=== PATIENT | male | born 1950 ===

== ENCOUNTER 2024-11-16 09:17 | Inpatient (IN) | payer MEDICARE, MEDICAID, SELFPAY ==
[2024-11-02 08:13] VITALS: BMI 33.0
[2024-11-16] VITALS (10 sets, daily range): BP systolic 109–134; BP diastolic 50–103; PULSE 73–98; RESP 13–24; TEMP 35.8–36.8; O2SAT 91–100; BMI 34.8; BMI 36.0
--- NOTE | 2024-11-16 | DI.RAD.S_ITS ---
PROCEDURE: XR ANKLE LT MIN 3V INDICATIONS: ORIF LEFT ANKLE TECHNIQUE: 13 intraoperative fluoroscopic views of the ankle were acquired. COMPARISON: None. FINDINGS: Intraoperative fluoroscopic images shows surgical hardware placed in distal tibial shaft, and in midfoot and hindfoot. IMPRESSION: Fluoro guidance was provided intraoperatively for ORIF of left ankle performed by ordering physician. Dictated by: Delfino Stiles M.D. on 11/16/2024 at 16:57 Approved by: Delfino Stiles M.D. on 11/16/2024 at 16:59
--- NOTE | 2024-11-16 10:16 | SUR.PREOP ---
Called KINDRA Burris at [facility] to review home medications.
[2024-11-16] MEDS: LACTATED RINGERS 1,000 ML 42 ML IV (10:33)
[2024-11-16] MEDS: ACETAMINOPHEN 325 MG TABLET 975 MG PO (10:42)
--- NOTE | 2024-11-16 10:48 | SUR.PREOP ---
1025 Spoke with Johana, financial sales assistant at [facility], to verify last anticoagulant dose. Per Johana, patient took his anticoagulant on 11/[address] Branham and Nithya Colunga, SEARCH MARKETING ANALYST notified.
--- NOTE | 2024-11-16 12:01 | PM.PREOP ---
Pre-operative Note Interval Note History & Physical reviewed/Exam performed by Physician: Yes Changes to H&P: No
[2024-11-16] MEDS: CEFAZOLIN 2 GM/100 ML PREMIX 100 ML IV ×2 (12:28→20:56)
--- NOTE | 2024-11-16 13:03 | SUR.OPER ---
Supine on padded OR bed, head on pillow, arms secured on padded arm boards at <90 degrees abduction, safety belt at waist, tape over blanket over lower right nonoperative leg, right leg bumped, right hip with bump, prepped into field.
[2024-11-16] MEDS: BUPIVACAINE 0.25% W/ EPI 30 ML VIAL 60 ML INJ (13:11)
--- NOTE | 2024-11-16 16:19 | P.OP_ITS ---
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 Partial Talectomy CPT code 10173 left 3. Achilles tenotomy CPT code 83635 left, separate site modifier 59 4. Fibula osteotomy CPT code 89652 5. Peroneal tendon release CPT code 76109 left This procedure was performed with a modifier 22 for a extremely difficult rigid pes planovalgus deformity requiring extensive dissection mobilization and translation exposure and time greater than twice the standard ankle fusion. The patient's calcaneus was locked superior and parallel to the talus laterally requiring extensive dissection and exposure for deformity correction. Same procedure as scheduled: Yes Indications: Patient was a 73-year-old male with a extremely severe left foot and ankle deformity with severe equinus pes planovalgus deformity that is rigid and neuropathic arthropathy his calcaneus is parallel and superior to his talus and he has been weight-bearing on his talar head. He was not able to walk due to his deformity and desires correction. The risks and benefits of the procedure have been discussed with the patient and given the opportunity to ask questions. The risks of surgery include but are not limited to infection, over correction or under correction of deformity, malunion, nonunion, persistence of pain, damage to nerves and blood vessels, posttraumatic arthritis, DVT, PE, cardiopulmonary complications, need for amputation and . The patient e xpressed a thorough understanding of the risks and benefits of surgery and has elected to proceed. Consent was signed. During the operation, the services of a physician surgical services asst were medic ally indicated and necessary to provide the exposure of the operative site for the surgical procedure and to maintain the limb in a proper position to carry out the operation safely and efficiently. Without a qualified medical record assistant being present this would extended the operative procedure and made the procedure technically more difficult to perform. Surgeon: Geovanna Branham Astronomy Professor: Jose Christine Anesthesia Type: General and Local Operative Notes Findings: Severe pes planovalgus deformity with the foot parallel and superior, lateral to the ankle. Calcaneus is locked on the distal fibula non correctable deformity. Callus of the talar head but no open wounds. Closure Type: primary Specimen(s): none sent Prosthetic devices, grafts, tissues, transplants, or devices: Arthrex dual compression hindfoot nail 10.5 x 210 mm with interlocking calcaneal talar and tibial screws Separate 2 x 7.0 headless cannulated screws for talonavicular fixation, 80 mm Estimated Blood Loss (mL): 200 Blood products transfused: none Tourniquet time (min): 120 Procedure in detail: Patient was seen in the preoperative area the site of surgery was marked informed consent confirmed. This was the left lower extremity. The patient was brought back to the operating room by the anesthesia team and positioned supine on operative table. Anesthesia was administered. A large ipsilateral thigh bump was placed well as a bump under the leg. And a well-padded thigh tourniquet was applied. The left lower extremity was prepped and draped in the standard sterile fashion a formal time-out procedure was performed confirming the patient's side and site of surgery administration of appropriate preoperative antibiotics. All were agreement. Attention turned to the left leg due to the severe deformity and the plan for hindfoot gudelia a Achilles tenotomy was performed. The leg was elevated and ankle held in dorsiflexion a percutaneous incision was made along the midsubstance of the Achilles and the Achilles was transected. Next attention was turned to the pantalar fusion. First the C-arm was brought into identify the bony landmarks the level of the ankle joint and other bony landmarks were marked on the skin. Then a small stab incision was made medially of the level of the ankle joint. A small Arthrex cutting bur was then advanced for a trans malleolar osteotomy across the medial malleolus across the ankle joint and across the fibula to help correct the deformity and prepare the joint for the fusion. Multiple passes were taken with the MIS bur from medial and then again through a separate small incision from lateral across the remnants of the displaced calcaneus and the fibula creating a distal fibula nonunion and preparing the tibiotalar joint. Separate percutaneous incisions were used to prepare the talonavicular joint calcaneocuboid joint and subtalar joint and this was used interchangeably with a larger 5 Celia for joint preparation and to remove the heterotopic ossification laterally in order to create some working space for deformity correction. Next an open incision was made over the navicular and talar head. The posterior tibialis tendon was released. The talar head was exposed. Due to the severe deformity and need for correction a partial talus ostomy was completed in the large sagittal saw was used to remove the talar head. Next the MAS burs were then used to finish preparation of the talonavicular joint and remove any remaining cartilage where the bone down to good bleeding cancellous bone. Attention was then turned lateral and a relatively small longitudinal incision was made laterally along the distal fibula and posterior in order to do a release of the peroneus longus and brevis tendons and then again insert the minimally invasive bur to complete fraying of the heterotopic bone laterally as well as the posterior and superior displaced calcaneal tuberosity. Efforts between the minimally invasive bur was in the osteotomes were used medially and lateral back and forth in the wound until I could achieve appropriate correction to bring the heel in line under the talus and tibia. There was some residual valgus proximally 5? this was felt to be reasonable and significantly improved from preoperatively and adequate for the planned hindfoot gudelia fixation. Once this was achieved the tibiotalar joint was 1st pinned with a K-wire then the subtalar joint was pinned and separately the talonavicular joint was pinned. This confirmed appropriate alignment on intraoperative fluoroscopy. Next the dual compression nail was opened. The guide gudelia was placed centered on the AP and lateral x-rays and and pinned from the heel through the talus and into the tibia. The plantar incision was then made with dissection down to the bone. The jig was placed and this was overdrilled with the opening drill Paulino drill fashion. Next the ball-tipped guidewire was placed and then the reamers were placed starting with a 9, 10 to a 10.5 and 11 and then 11.5 Reamer for a 10.5 nail. The 10.5 to 110 mm nail was selected. This was opened and prepared on the back table. This was then inserted. Then using the standard technique 1st placing the posterior distal calcaneal screw and then the proximal distal tibia screw followed by the compression apparatus then the 2nd calcaneal screw, the talar screw and then the final proximal tibial screw. These were confirmed in place in the appropriate alignment. With appropriate compression. Next attention was turned to the talonavicular fusion. This was held reduced and K-wires for the 7.0 screws were measured and then overdrilled and 2 of the 7.0 headless cannulated screws were placed achieving excellent fixation. Additional bony prominences were rongeured down and part of the previous talar head excision calcaneus graft was then packed in any remaining joint spaces for additional bone graft. Final x-rays were taken AP, lateral, mortise, hindfoot alignment views demonstrated appropriate reduction fixation hardware placement.. There was mild residual valgus much improved from previous. This was the extent of the valgus that I was able to correct to still allow lateral skin closure. Tourniquet was released hemostasis was achieved. Local anesthetic was administered for postoperative pain control. The wounds were irrigated and closed in the layered fashion with 2-0 Vicryl 4-0 Monocryl and 3-0 nylon suture. A well-padded bulky Vital splint was applied with Xeroform gauze Webril bulky Vital cotton posterior and U stirrup splints and an Franco wrap. Patient was awoken from anesthesia and taken to the recovery unit in good condition there were no immediate complications for this procedure. Counts were correct. Complications: none Post-operative Condition: stable Disposition: PACU Plan for aftercare: Nonweightbearing or touchdown for balance postoperatively currently 6 weeks. Follow up in Orthopedic Clinic in about 3 weeks for suture removal. If there is any saturation from the bottom of the splint which is common with hindfoot rods or nails then this can be reinforced with additional padding and an Franco wrap. The patient will restart his Eliquis 24 hours postop --scheduled to start tomorrow evening.
[2024-11-16] MEDS: ALBUTEROL/IPRATROPIUM 3 ML AMPUL INH (16:27)
[2024-11-16] MEDS: hydrOXYzine 50 MG/ML INJ IM (16:29)
[2024-11-16] MEDS: HYDROMORPHONE 1 MG INJ IV ×2 (16:30→16:39)
[2024-11-16] MEDS: OXYCODONE IR 5 MG TABLET PO ×2 (17:07→23:22)
[2024-11-16] MEDS: HYDROMORPHONE 0.5 MG INJ IV (17:35)
[2024-11-16] MEDS: LACTATED RINGERS 1,000 ML 100 ML IV (18:45)
[2024-11-16] MEDS: FAMOTIDINE 20 MG TABLET PO (21:02)
[2024-11-16] MEDS: SENNOSIDES 8.6 MG TABLET 17.2 MG PO (21:02)
[2024-11-16] MEDS: DOCUSATE 100 MG CAPSULE PO (21:02)
[2024-11-16] MEDS: ACETAMINOPHEN 325 MG TABLET 650 MG PO (23:21)
[2024-11-17 00:58] VITALS: BP 101/75; PULSE 90; RESP 16; TEMP 35.9; O2SAT 94
[2024-11-17] MEDS: OXYCODONE IR 5 MG TABLET PO ×2 (02:20→09:12)
[2024-11-17] MEDS: LACTATED RINGERS 1,000 ML 100 ML IV (02:26)
[2024-11-17 04:00] VITALS: BP 98/70; PULSE 74; RESP 20; TEMP 36.6; O2SAT 96
[2024-11-17] MEDS: CEFAZOLIN 2 GM/100 ML PREMIX 100 ML IV (04:38)
[2024-11-17 06:00] LABS: Add Manual Diff / Slide Review NO; Basophils Absolute Auto 0 /uL (0-100); Basophils Percent Auto 0.5 % (0-2); Eosinophils Absolute Auto 0 /uL (0-450); Eosinophils Percent Auto 0.4 % (2-4); Hemoglobin 12.8 g/dL (13.5-17.5); Lymphocytes Absolute Auto 1000 /uL (1100-4500); Mean Corpuscular HGB Conc 32.8 % (30-36); Mean Corpuscular Hemoglobin 28.9 PG (26-34); Mean Corpuscular Volume 88.2 fL (80-100); Monocytes Absolute Auto 600 /uL (0-900); Monocytes Percent Auto 7.2 % (3-14); Neutrophils Absolute Auto 6600 /uL (1500-7000); Neutrophils Percent Auto 79.9 % (50-75); Platelet Count 100 X10^3/uL (150-400); Red Blood Cell Count 4.42 X10^6/uL (4.5-5.9); Red Cell Distribution Width 14.1 % (11.6-14.8); White Blood Cell Count 8.2 X10^3/uL (4.5-11.0)
[2024-11-17] MEDS: ACETAMINOPHEN 325 MG TABLET 650 MG PO ×3 (06:07→18:29)
[2024-11-17 06:33] LABS: BUN Creatinine Ratio 24.4 (6-22); Blood Urea Nitrogen 19 mg/dL (9-20); Calcium 8.7 mg/dL (8.4-10.2); Carbon Dioxide 31 mmol/L (22-32); Chloride 99 mmol/L (98-107); Estimated Glomerular Filt Rate > 60 mL/min (>60); Glucose 155 mg/dL (80-110); HEMOLYSIS < 15 (0-50); Sodium 136 mmol/L (137-145)
--- NOTE | 2024-11-17 07:48 | PM.PNPO.1 ---
Subjective Subjective Date Patient Seen: 11/17/24 Time Patient Seen: 07:49 Interval history: Postop day 1 pantalar fusion left foot deformity. Doing well pain controlled. Exam Vital Signs (past 8 hours): - 11/17/24 00:58 11/17/24 04:00 Temperature 96.7 F L 97.8 F Pulse Rate 90 74 Respiratory Rate 16 20 Blood Pressure 101/75 98/70 Pulse Oximetry 94 96 Oxygen Flow Rate 2 1 Fraction of Inspired Oxygen 28 SaO2/FiO2 Ratio 357 Oxygen Delivery Method Nasal Cannula Oxygen Flow Rate 1 Narrative Exam Narrative: Splint clean dry and intact. There was a little bit of spotting which was rewrapped with an Franco wrap which was normal. Patient alert and oriented. Does with brisk capillary refill. Stable postoperative alignment. Calf soft, knee benign. Objective Labs 11/17/24 05:50 11/17/24 05:50 Labs: Laboratory Results - last 24 hr 11/17/24 05:50 WBC 8.2 RBC 4.42 L Hgb 12.8 L Hct 39.0 L MCV 88.2 MCH 28.9 MCHC 32.8 RDW 14.1 Plt Count 100 L Neut % (Auto) 79.9 H Lymph % (Auto) 12.0 L [place] % (Auto) 7.2 Eos % (Auto) 0.4 L Baso % (Auto) 0.5 Neut # (Auto) 6600 Lymph # (Auto) 1000 L [place] # (Auto) 600 Eos # (Auto) 0 Baso # (Auto) 0 Sodium 136 L Potassium 5.0 Chloride 99 Carbon Dioxide 31 BUN 19 Creatinine 0.78 Estimated GFR > 60 BUN/Creatinine Ratio 24.4 H Glucose 155 H Calcium 8.7 PFSH Medical History (Updated 10/14/24 @ 09:33 by Veronica Martin RN) DERREK on CPAP Osteomyelitis Respiratory failure (03/2024) A-fib Social History household members: family Smoking Status: Never smoker alcohol intake: former Assessment & Plan Post-op Postoperative Procedures: Procedures Operation Date: 11/16/24 11:45 Actual Procedure Side Surgeon p LEFT ANKLE Tibiotalar and subtalar joint fusion, partial talectomy, medial displacement calcaneal osteotomy is indicated, MEDIAL TENDON RELEASE, ACHILLES TENDON RELEASE Left Geovanna Branham MD Postoperative day: 1 Postoperative status: doing well Postoperative status narrative: Doing well we will put physical therapy occupational therapy today. Plan to transfer back to his facility with touchdown for transfers otherwise nonweightbearing on the left lower extremity. Postoperative plan: routine post-op care Postoperative plan narrative: Transfer back to rehab facility after therapy today. We will restart Eliquis tomorrow morning we will hold 1 more day which is today and restart tomorrow Time Spent With Patient Time with patient: less than 15 minutes Quality VTE Deep Vein Thrombosis/Pulmonary Embolism Present on Admission: No
[2024-11-17 08:00] VITALS: BP 99/54; PULSE 83; RESP 16; TEMP 36.4; O2SAT 97
[2024-11-17] MEDS: DIGOXIN 0.125 MG TABLET PO (09:10)
[2024-11-17] MEDS: FAMOTIDINE 20 MG TABLET PO ×2 (09:10→21:12)
[2024-11-17] MEDS: DOCUSATE 100 MG CAPSULE PO ×2 (09:10→21:12)
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
[2024-11-17] MEDS: OXYCODONE IR 10 MG TABLET PO ×2 (12:46→18:28)
--- NOTE | 2024-11-17 14:20 | PT.IIE ---
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 (11/16/24) Pain in left ankle and joints of left foot (11/16/24) Surgery Performed Operation Date: 11/16/24 11:45 Actual Procedures p LEFT ANKLE Tibiotalar and subtalar joint fusion, partial talectomy, medial displacement calcaneal osteotomy is indicated, MEDIAL TENDON RELEASE, ACHILLES TENDON RELEASE(Left) - Geovanna Branham MD Medical History (Last Updated 10/14/24 @ 09:33 by Veronica Martin RN) A-fib DERREK on CPAP Osteomyelitis Respiratory failure (03/2024) Physical Therapy Inpatient Evaluation/Re-Eval M1 PT/OT-IP Prior Functional Status Start: 11/17/24 11:31 Freq: NEEDED Status: Active Protocol: Document 11/17/24 11:31 CCC (Rec: 11/17/24 11:47 CCC Desktop) Medical Review Prior Functional Status Communication I Mobility and Gait Pt states prior able to walk up to 20 ft with FWW and staff assist. Activities of Daily Living and IADL's Pt states did most of his ADL' s except had assist for showers. Social History Household Members family Living Arrangements Assisted Living Home Environment Standard Height Toilet Home Equipment Grab Bars Near Toilet Additional Social History Comment Pt has standard walker. M1 PT/OT-IP Prior Functional Status Start: 11/17/24 14:04 Freq: NEEDED Status: Active Protocol: Document 11/17/24 14:05 KJ (Rec: 11/17/24 14:20 KJ Laptop) Medical Review Prior Functional Status Medical History Reviewed Yes Communication I Mobility and Gait Pt states prior able to walk up to 20 ft with FWW and staff assist. Activities of Daily Living and IADL's Pt states did most of his ADL' s except had assist for showers. Social History Household Members caregiver Living Arrangements Assisted Living Home Environment Standard Height Toilet Home Equipment Shower Seat with Backrest,Grab Bars Near Toilet Additional Social History Comment Pt has standard walker and wheelchair. M2 PT-IP Current Condition Start: 11/17/24 14:04 Freq: NEEDED Status: Active Protocol: Document 11/17/24 14:05 KJ (Rec: 11/17/24 14:20 KJ Laptop) Physical Therapy Current Condition Current Condition Evaluation Date 11/17/24 Treatment Diagnosis Impaired mobility s/p ankle fusion Onset Date 11/16/24 M3 PT-IP Subjective Start: 11/17/24 14:04 Freq: NEEDED Status: Active Protocol: Document 11/17/24 14:05 KJ (Rec: 11/17/24 14:20 KJ Laptop) Subjective Physical Therapy Visit Type Type Initial Evaluation Visit Start Time 10:39 Visit Stop Time 11:14 Physical Therapy Visit Comments Patient Comments Reports pain only in left ankle. Patient Goals To return to facility, get stronger, and eventually return home. Therapy Pain Assessment Pain When Pain Assessed At Rest Pain Present Pain Present Pain Reported Location Left Ankle Description Aching Pain Behaviors Facial Grimacing Pain Management Techniques Modification of Treatment,Re- positioning M4 PT-IP Mobility and Gait Start: 11/17/24 14:04 Freq: NEEDED Status: Active Protocol: Document 11/17/24 14:05 KJ (Rec: 11/17/24 14:20 KJ Laptop) PT-Bed Mobility Assessment Rolling Type of Rolling Roll to Right Supine to Sit Supine to Sit Standby Assistance Scooting Scooting to Edge of Bed Standby Assistance PT-Transfer Assessment Sit to and From Stand Sit to and from Stand Minimal Assistance Equipment Transfer Assistive Device Gait Belt,Front Wheeled Walker Transfers Transfer Destination Chair Transfer Technique Mechanical Lift Transfer Ability Level of Assist Total Assistance Comments Mobility Comments Pt was unable to maintain nwb status in standing, therefore, overhead lift was used for transfer. PT-Balance Assessment Sitting Balance and Reactions Static Sitting Balance Ability Normal Dynamic Sitting Balance Ability Normal M5 PT-IP Objective Assessments Start: 11/17/24 14:04 Freq: NEEDED Status: Active Protocol: Document 11/17/24 14:05 KJ (Rec: 11/17/24 14:20 KJ Laptop) Orientation Orientation/Cognition Level of Alertness Alert Orientation Name,Age,Situation Language Function Ability No Deficits Noted Safety Awareness Understands Safety Issues Memory Description No Deficits Noted Gross Range of Motion Lower Extremity ROM Assessment Left Impaired Impairments R knee lacks 19 degrees ext. L ankle in cast Strength Lower Extremity Strength Assessment Within Functional Limits Hip hip WFL Knee knee ext on R 5/5 Ankle Ankle plantar/dorsiflex on R 5 /5 Comments Strength Comments L knee and ankle not tested due to cast and surgery yesterday, however pt did demonstrate at least 3/5 strength in R knee. He is able to wiggle toes on L. M6 PT-IP Treatment Start: 11/17/24 14:04 Freq: NEEDED Status: Active Protocol: Document 11/17/24 14:05 KJ (Rec: 11/17/24 14:20 KJ Laptop) Physical Therapy Treatment Exercises Exercises Ankle Pumps,Gluteal Sets,Quad Sets Education Education Provided Weight Bearing Status,Safety Other Treatments Other Treatment Performed Instructed pt on deep breathing for pain relief. Noted pt tends to grimace during or in anticipation of pain, and holds breath. Encouraged pt to breathe slowly and steadily. Instructed him on techniques to practice facial relaxation and breathing. M7 PT-IP Assessment and Plan Start: 11/17/24 14:04 Freq: NEEDED Status: Active Protocol: Document 11/17/24 14:05 KJ (Rec: 11/17/24 14:20 KJ Laptop) PT Summary Assessment and Plan Potential Rehabilitation Potential Excellent Status of Condition at Evaluation Evolving Summary Impairments Pain,ROM,Transfers,Gait, Activity Tolerance Goals Bed Mobility Goal Independent Transfer Goal Independent Gait Goal Minimal Assistance Gait Distance 20 Days to Meet Goals 5 Frequency of Treatment Frequency Of Treatment Twice a Day Treatment Plan Physical Therapy Treatment Plan Transfer Training,Gait Training,Therapeutic Exercise Other Recommendations and Next Treatment Continue transfer training Focus when pt is able to keep weight off of the LLE in standing. Encourage pt to be up in chair most of the day and for all meals. Weight Bearing Status Weight Bearing Status Touch Down Weight Bearing Allowed Weight Bearing Amount (enter % Allowed to toe touch during or #) (%) transfers, otherwise NWB Recommendations To Nursing Amount of Assist Needed Mechanical Lift Discharge Recommendations PT Discharge Recommendations SNF Rehab Transportation Needs at Discharge Wheelchair/Cabulance - PT assist 2
[2024-11-17 15:19] VITALS: O2SAT 92
[2024-11-17 20:00] VITALS: BP 118/90; PULSE 114; RESP 20; TEMP 36.9; O2SAT 91
[2024-11-17] MEDS: SENNOSIDES 8.6 MG TABLET 17.2 MG PO (21:12)
[2024-11-18] MEDS: OXYCODONE IR 10 MG TABLET PO ×2 (01:50→08:17)
--- NOTE | 2024-11-18 07:57 | CM.DANOTE ---
Initial DCP Assessment Visit Note Reviewed EMR and team rounds for status updates. Met with pt at bedside to introduce self and role, pt was found to be resting quietly in bed, stating that his pain is well controlled, and was able to discuss his plan to return to [facility] once he is medically cleared for d/c, likely 11/18. This PAPER TESTING SUPERVISOR will assist in coordinating his return transport through Medicaid Transportation. Payor: [facility] Attending: Dr. Branham Pt is a 73 year-old M post-op day 2 from a L-ankle fusion secondary to Charcot's foot/joint. Pt was able to ambulate with a walker prior to surgery approx. 2- feet, he does also have a wheelchair that he uses at the facility. Pt has been working with therapies, plan is d/c back to [facility] under their SNF rehab program. DCP will continue to assist with d/c coordination and any further evolving needs prior to d/c. Discharge Planning/Care Management CM Discharge Assessment Start: 11/18/24 07:54 Freq: Status: Active Protocol: Document 11/18/24 07:55 DPL (Rec: 11/18/24 07:56 DPL [id number]) Discharge Planning Assessment Assigned Blast Furnace Supervisor JAMIE Christopher Advance Directives? No Advance Directives on File No History Provided By Patient,Medical Record Has Patient been admitted in last 30 No days? Prior Living Arrangements Assisted Living Comment Lives at [facility] Household Members caregiver Type of transporation used prior to Relies on Others admit Facility Name Admitted From: [facility] Willing to Return to Facility? Yes Needs Assistance With Bathing,[employer]al [employer] DME Already Rented / Owned Bath Bench,Wheelchair,Elevated Toilet Seat Patient/Family Preference [facility] Facility Comment [facility] Barriers to Discharge No Discharge Plan [facility] Physical Therapy,Occupational Therapy Referrals Initiated [facility] Whiteboard Updated in Patient Room with Yes name and ext. # of Blast Furnace Supervisor Review Status In Process Please Provide Date Initial DC 11/18/24 Assessment Was Performed Pre-Anesthesia Assessment Start: 10/13/24 14:41 Freq: Status: Complete Protocol: Document 11/02/24 08:13 CAB (Rec: 10/14/24 09:32 LB [id number]) Pre-Anesthesia Assessment PAC Comment 10/14/24 Chart review. Spoke with BRENDA Mariano at [facility]. Med and surgical instructions given. Patient Information Reviewed Via Chart Review Diagnostic Results BMP/CMP,CBC,EKG Comment 10/09/24 outside results. Primary Care Provider Evelyne Thakur Comment Clearance form 09/15/24 scanned and in surgery folder Seen Specialist in Last 12 Months Yes Specialist Seen Orthopedist Primary Language Yi Preferred Language Yi Program Project Manager Required No Height 185.42 cm Weight 113.398 kg Body Mass Index (BMI) 33.0 Anesthesia Review Requested No Pile Operator No Smoking Status Never smoker Musculoskeletal Symptoms Difficulty Walking Patient is completely paralyzed or No completely immobile Prosthesis or Orthotic Device Wheelchair Comment Karo lift / pt has been transferring self per BRENDA Mariano. Is patient on oxygen? No Hx Sleep Apnea Yes CPAP/BIPAP use prescribed and used routinely Will Bring CPAP/BIPAP DOS Yes Currently Taking a Beta Alice Yes: Metoprolol 50mg daily. Anti-Coagulant Therapy Yes: Eliquis-advised to hold 2 days prior per PCP Cardiac Testing No Hx Pacemaker/ICD No Dysphagia No Urinary Catheter Present No Current Living Arrangements Skilled Nurse Facility Patient Discharge Plan Description [facility] Facility/Rehab Advance Directives on File No PAC Instructions Medications to take/avoid,No ETOH/petroleum product on skin DOS,NPO,Post-op transportation,Pre-surgical wash,Sturdy shoes/comfortable clothes
[2024-11-18] MEDS: DOCUSATE 100 MG CAPSULE PO (08:17)
[2024-11-18 08:18] VITALS: BP 93/60; PULSE 110
[2024-11-18] MEDS: DIGOXIN 0.125 MG TABLET PO (08:18)
[2024-11-18] MEDS: FAMOTIDINE 20 MG TABLET PO (08:19)
[2024-11-18] MEDS: FUROSEMIDE 20 MG TABLET PO (08:19)
[2024-11-18 08:26] VITALS: BP 93/64; PULSE 77
[2024-11-18 08:44] VITALS: BP 93/64; PULSE 77; RESP 18; TEMP 37.1; O2SAT 100
--- NOTE | 2024-11-18 09:04 | PM.DS.1 ---
History of Present Illness History of Present Illness Chief complaint: Left Ankle Fusion Narrative: Getachew is a 73 year old male who is POD#2 s/p left ankle fusion and partial talectomy by Dr. Branham. This morning he reports he is doing well overall, pain is moderate, feels okay at rest, gets sharp pains w/ when he wiggles his toes or puts too much pressure on his heel in bed. He is urinating well w/o issue. He is eating well. He lives at [facility] and thinks d/c back to [facility] rehab unit is appropriate. He worked w/ PT yesterday and states it went well. 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 Partial Talectomy CPT code 85868 left 3. Achilles tenotomy CPT code 41075 left, separate site modifier 59 4. Fibula osteotomy CPT code 80384 5. Peroneal tendon release CPT code 50720 left This procedure was performed with a modifier 22 for a extremely difficult rigid pes planovalgus deformity requiring extensive dissection mobilization and translation exposure and time greater than twice the standard ankle fusion. The patient's calcaneus was locked superior and parallel to the talus laterally requiring extensive dissection and exposure for deformity correction. Same procedure as scheduled: Yes Indications: Patient was a 73-year-old male with a extremely severe left foot and ankle deformity with severe equinus pes planovalgus deformity that is rigid and neuropathic arthropathy his calcaneus is parallel and superior to his talus and he has been weight-bearing on his talar head. He was not able to walk due to his deformity and desires correction. The risks and benefits of the procedure have been discussed with the patient and given the opportunity to ask questions. The risks of surgery include but are not limited to infection, over correction or under correction of deformity, malunion, nonunion, persistence of pain, damage to nerves and blood vessels, posttraumatic arthritis, DVT, PE, cardiopulmonary complications, need for amputation and . The patient expressed a thorough understanding of the risks and benefits of surgery and has elected to proceed. Consent was signed. During the operation, the services of a physician surgical technology instructor were medically indicated and necessary to provide the exposure of the operative site for the surgical procedure and to maintain the limb in a proper position to carry out the operation safely and efficiently. Without a qualified kindergarten instructional assistant being present this would extended the operative procedure and made the procedure technically more difficult to perform. Surgeon: Geovanna Branham Inside Sales Agent: Jose Christine Anesthesia Type: General and Local Discharge Providers Provider Date of admission: 11/16/24 09:17 Discharge Date: 11/18/24 Primary care physician: Evelyne Thakur DO Consults: 11/16/24 09:41 Consult to Anesthesiology Routine Comment: Consulting Provider: Anesthesiologist Reason for consultation: Post operative pain managment Has provider been notified: No 11/16/24 17:19 Consult to Discharge Planning Routine Comment: likely Back to [facility] postop [facility] 1 Consult to Occupational Therapy Evaluate & Treat Comment: Physician Instructions: Evaluate and treat Consult to Physical Therapy Evaluate & Treat Comment: Nonweightbearing or touchdown for balance Physician Instructions: Evaluate and Treat Discharge provider: Miranda Jenkins PA-C Summary Hospital Course Discharge Diagnosis: stable s/p left ankle fusion and partial talectomy Hospital Course: hospital course complicated by difficulty w/ mobilization on POD#1 Exam Vital Signs (past 8 hours): - 11/18/24 08:18 11/18/24 08:26 11/18/24 08:44 Temperature 98.7 F Pulse Rate 110 H 77 77 Respiratory Rate 18 Blood Pressure 93/60 93/64 93/64 Pulse Oximetry 100 Oxygen Flow Rate 0 Fraction of Inspired Oxygen 28 SaO2/FiO2 Ratio 357 Oxygen Delivery Method CPAP Oxygen Flow Rate 0 Narrative Exam Narrative: Patient lying in bed comfortably during our interview today. Normal respiratory effort, able to speak in complete sentences. Wiggles toes. Reports sensation is intact to all toes. Upper calf is soft and compressible without tenderness. Postsurgical splint and dressing in place without any drainage. Objective Labs 11/17/24 05:50 11/17/24 05:50 [facility] Medical History (Updated 10/14/24 @ 09:33 by Veronica Martin RN) DERREK on CPAP Osteomyelitis Respiratory failure (03/2024) A-fib Social History household members: caregiver Smoking Status: Never smoker alcohol intake: former Discharge Assessment & Plan Assessment and Plan Assessment: stable s/p left ankle fusion and partial talectomy Plan of Treatment: 1) Plan to discharge to [facility] today pending PT evaluation. 2) Continue multimodal pain management. SNF Rx printed, signed and in patients chart. 3) Resume Eliquis this morning. 4) Work w/ PT and OT to practice safe transfers/ambulation while being nonweightbearing or touchdown for balance only on the LLE for 6 weeks post-op. 5) Keep splint and dressing intact, clean, dry until 2 week postop appointment. No soaking the incision site in pools or tubs. No topical ointments or creams to the incision site. Sutures to come out at 3 weeks post-op. If there is any saturation from the bottom of the splint which is common with hindfoot rods or nails then this can be reinforced with additional padding and an Franco wrap. 6) Follow up at [facility] in 2 weeks for a postop appointment and wound check. All patient's questions were answered, he demonstrates understanding and is in agreement with the plan. Call our office if any questions or concerns arise. Discharge Plan Discharge Plan Patient Disposition: [facility] Transfer to: [facility] Discharge orders & Medications Prescriptions: New oxycodone 5 mg Tablet 5 mg PO Q4H PRN (Reason: Pain, Moderate (4-6)) Qty: 30 0RF acetaminophen 325 mg Tablet 650 mg PO Q6H Qty: 90 0RF docusate sodium 100 mg Capsule 100 mg PO BID PRN (Reason: Constipation) Qty: 30 0RF ondansetron 4 mg Tablet,Disintegrating 4 mg PO Q4HR PRN (Reason: Nausea And Vomiting) Qty: 10 0RF Continued metoprolol succinate 50 mg Tablet Extended Release 24 Hr 50 mg PO DAILY spironolactone 25 mg Tablet 25 mg PO DAILY famotidine 20 mg Tablet 20 mg PO BID digoxin 125 mcg (0.125 mg) Tablet 125 mcg PO DAILY furosemide [Lasix] 20 mg Tablet 20 mg PO DAILY Eliquis 5 mg Tablet 5 mg PO BID Discontinued acetaminophen [Tylenol Extended Release] 650 mg Tablet Extended Release 650 mg PO BID Follow up/Referrals: Geovanna Branham MD [Physician] - (Follow up at [facility] [place] as scheduled in 2 weeks. ) Ofe,Evelyne M, DO [Primary Care Provider] - Diet/Activity/Treatments Diet: Diet as Tolerated Skin/Wound/Dressing Care Report to your healthcare provider any signs of infection, such as:: chills, fever, night sweats, unusual drainage and unusual redness Dressing: Keep dressing intact, clean and dry until 2 week post-op appointment. No soaking the incision site in pools or tubs. No topical ointments or creams to the incision site. Sutures will be removed at 3 weeks post-op. Special Rehabilitation Services Reason for rehabilitation: Post-operative therapy Rehab type: Physical therapy Visit Report/Discharge Packet Instructions: DI for Prescription Opioid Use Stand Alone Forms: Patient Portal/API Discharge Data Primary Care Provider: Evelyne Thakur Quality VTE Deep Vein Thrombosis/Pulmonary Embolism Present on Admission: No
--- NOTE | 2024-11-18 09:30 | PT.IPTN ---
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 (11/16/24) Pain in left ankle and joints of left foot (11/16/24) Surgery Performed Operation Date: 11/16/24 11:45 Actual Procedures p LEFT ANKLE Tibiotalar and subtalar joint fusion, partial talectomy, medial displacement calcaneal osteotomy is indicated, MEDIAL TENDON RELEASE, ACHILLES TENDON RELEASE(Left) - Geovanna Branham MD Physical Therapy Treatment Note M2 PT-IP Current Condition Start: 11/17/24 14:04 Freq: NEEDED Status: Active Protocol: Document 11/17/24 14:05 KJ (Rec: 11/17/24 14:20 KJ Laptop) Physical Therapy Current Condition Current Condition Evaluation Date 11/17/24 Treatment Diagnosis Impaired mobility s/p ankle fusion Onset Date 11/16/24 M3 PT-IP Subjective Start: 11/17/24 14:04 Freq: NEEDED Status: Active Protocol: Document 11/18/24 09:30 AB (Rec: 11/18/24 13:03 AB [id number]) Subjective Physical Therapy Visit Type Type Treatment Note Visit Start Time 09:30 Visit Stop Time 10:35 Number of DECORATIVE CUTTING MACHINE TENDER Visits 0 Physical Therapy Visit Comments Patient Comments agreeable to do PT Therapy Pain Assessment Pain When Pain Assessed During Mobility Pain Present Pain Present Pain Reported Location Left Ankle Intensity 7 Scale Used Numeric (0 - 10) Pain Management Techniques Distraction,Modification of Treatment,Re-positioning, Timing of Activity with Medications M4 PT-IP Mobility and Gait Start: 11/17/24 14:04 Freq: NEEDED Status: Active Protocol: Document 11/18/24 09:30 AB (Rec: 11/18/24 13:03 AB [id number]) PT-Bed Mobility Assessment Supine to Sit Supine to Sit Standby Assistance Sit to Supine Sit to Supine Standby Assistance PT-Transfer Assessment Sit to and From Stand Sit to and from Stand Maximum Assistance,1 Person Assistance,2 Person Assistance ,Use of Upper Extremities Equipment Transfer Assistive Device Gait Belt,Front Wheeled Walker Orthotic/Prosthetic Devices or Brace: No Transfers Transfer Destination Chair Transfer Technique Lateral Scoot Transfer Ability Level of Assist Minimal Assistance,Moderate Assistance,2 Person Assistance ,Use of Upper Extremities Comments Mobility Comments pt in bed and agreeable to do PT. BP in supine: 91/62 completed supine to sit SBA. able to sit on EOB SBA. BP: 110/64. reviewed NWB on LLE with pt. pt understood. sit to stand max A x 1-2 and max cues but unable to get to upright position with pt unable to maintain NWB on LLE despite max A provided. sit to supine SBA. positioned pt in bed. call light and table placed within reach. checked back on pt after rounds meeting. pt completed supine to sit SBA. educated pt on use of slide board. max A for slide board set up but has able to complete slide board transfer min A x 2 to mod A x 2 and max cues. needed assistance for NWB on LLE. positioned pt on the chair. Left pt with OT. M5 PT-IP Objective Assessments Start: 11/17/24 14:04 Freq: NEEDED Status: Active Protocol: Document 11/17/24 14:05 KJ (Rec: 11/17/24 14:20 KJ Laptop) Orientation Orientation/Cognition Level of Alertness Alert Orientation Name,Age,Situation Language Function Ability No Deficits Noted Safety Awareness Understands Safety Issues Memory Description No Deficits Noted Gross Range of Motion Lower Extremity ROM Assessment Left Impaired Impairments R knee lacks 19 degrees ext. L ankle in cast Strength Lower Extremity Strength Assessment Within Functional Limits Hip hip WFL Knee knee ext on R 5/5 Ankle Ankle plantar/dorsiflex on R 5 /5 Comments Strength Comments L knee and ankle not tested due to cast and surgery yesterday, however pt did demonstrate at least 3/5 strength in R knee. He is able to wiggle toes on L. M6 PT-IP Treatment Start: 11/17/24 14:04 Freq: NEEDED Status: Active Protocol: Document 11/18/24 09:30 AB (Rec: 11/18/24 13:03 AB [id number]) Physical Therapy Treatment Education Education Provided Weight Bearing Status,Safety M7 PT-IP Assessment and Plan Start: 11/17/24 14:04 Freq: NEEDED Status: Active Protocol: Document 11/18/24 09:30 AB (Rec: 11/18/24 13:03 AB [id number]) PT Summary Assessment and Plan Potential Rehabilitation Potential Fair Summary Impairments Pain,ROM,Strength,Balance, Coordination,Sensation,Tone, Cognition,Bed Mobility, Transfers,Gait,Activity Tolerance Progress Towards Goals Slow Progress due to Activity Tolerance,Slow Progress - Other Assessment Summary pt requiring max A x 1-2 for sit to stand but unable to get to full upright position and unable to maintain NWB on LLE. pt able to slide board transfer max A for set up and min A x 2 to mod A x 2 for transfer. pt plans to go back to SNF. Goals Bed Mobility Goal Independent Transfer Goal Independent Gait Goal Minimal Assistance Gait Distance 20 Days to Meet Goals 5 Frequency of Treatment Frequency Of Treatment Twice a Day Treatment Plan Physical Therapy Treatment Plan Transfer Training,Gait Training,Therapeutic Exercise Other Recommendations and Next Treatment Continue transfer training Focus when pt is able to keep weight off of the LLE in standing. Encourage pt to be up in chair most of the day and for all meals. Weight Bearing Status Weight Bearing Status Non-Weight Bearing Allowed Weight Bearing Amount (enter % NWB on LLE but can do touch or #) (%) down for transfers only Recommendations To Nursing Amount of Assist Needed Mechanical Lift Discharge Recommendations PT Discharge Recommendations SNF Rehab Transportation Needs at Discharge Wheelchair/Cabulance - PT assist 2
[2024-11-18] MEDS: APIXABAN 5 MG TABLET PO (09:33)
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
--- NOTE | 2024-11-18 11:34 | CM.DPC ---
DCP Cont. Reviewed EMR and team rounds for status updates. Pt has been medically cleared for d/c back to [facility]. [facility] called and arranged for transport back, they will place a request for auth from [facility] for rehab there. Transport time is 12:15-12:30pm. Obtaining signed medlist from [facility]. No further CM d/c needs are identified at this time.
[2024-11-18] MEDS: OXYCODONE IR 5 MG TABLET PO (11:56)
--- NOTE | 2024-11-18 13:32 | PC.NURSE ---
Discharge: Pt is ready to transfer back to facility, [facility]. Report called to [facility] admitting nurse. Reviewed hospital course, non weight bear. Reinforce dressing don't remove. Dressing at this time is c/d/i, but he did start his elequis today. Pain is in control, able to eat and is voiding. No Bm since he has been here. Questions answered. If she has further questions then she can call this engineering writer if needed.
== END 2024-11-18 12:45 | DRG 493 ==
PROVIDERS: Admitting Provider Orthopaedic Surgery Foot and Ankle Surgery; PCP Family Medicine; Referring Provider Orthopaedic Surgery Foot and Ankle Surgery; Visit Provider Orthopaedic Surgery Foot and Ankle Surgery
PROC: 0L8T0ZZ Division of Left Ankle Tendon, Open Approach (ICD-10-PCS; CPT 27870; principal; 2024-11-16 11:45)
DX: M14.672 Charcot's joint, left ankle and foot (principal); I48.20 Chronic atrial fibrillation, unspecified; M24.172 Other articular cartilage disorders, left ankle; M21.072 Valgus deformity, not elsewhere classified, left ankle; I11.0 Hypertensive heart disease with heart failure; I50.9 Heart failure, unspecified; G47.33 Obstructive sleep apnea (adult) (pediatric); Z79.01 Long term (current) use of anticoagulants
CPT/HCPCS: 36415; 73610; 76000; 80048; 85025; 94762; 97110; 97166; 97530; 97535; A9270; C1713; J0330; J0690; J1100; J1171; J2405; J2704; J3010; J3410; J3490